=== PATIENT | female | born 1955 | race Caucasian/White ===

== ENCOUNTER → 2017-05-16 | Outpatient (CLI) | payer OTHER ==
--- NOTE | 2017-05-16 14:24 | RADIOLOGY REPORT (SQ) ---
EXAM DESCRIPTION: MRI CERVICAL SPINE WITHOUT COMPLETED DATE/TIME: 05/16/2017 1:44 pm REASON FOR STUDY: RADICULOPATHY,CERVICAL M54.12 RADICULOPATHY, CERVICAL REGION M54.16 RADICULOPATH Y, LUMBAR REGION COMPARISON: 12/03/2012 TECHNIQUE: Sagittal and Axial imaging includes T1, T2, STIR and gradient echo sequences. LIMITATIONS: None. FINDINGS: ALIGNMENT: Normal. VERTEBRAE: Intact. BONE MARROW: Normal. No marrow replacement or reactive changes. DISCS: Desiccation multiple levels. HARDWARE: None in the spine. CORD AND BASE OF BRAIN: Normal in size and signal intensity. SOFT TISSUES: No soft tissue masses. C1-C2: No significant spinal stenosis. C2-C3: No significant spinal stenosis or exit foraminal stenosis. C3-C4: Disc bulge. No significant spinal stenosis or exit foraminal stenosis. C4-C5: Disc bulge. No significant spinal stenosis. Mild neural foraminal narrowing bilaterally. C5-C6: Disc bulge. No significant spinal stenosis. Mild right neural foraminal narrowing. C6-C7: Disc bulge. No significant spinal stenosis or exit foraminal stenosis. C7-T1: No significant spinal stenosis or exit foraminal stenosis. UPPER THORACIC: Incompletely imaged. No significant spinal stenosis or exit foraminal stenosis. OTHER: No other significant finding. IMPRESSION: Mild degenerative change. No evidence of disc herniation. TECHNICAL DOCUMENTATION: JOB ID: [id number] [employer] All Rights Reserved
--- NOTE | 2017-05-16 14:32 | RADIOLOGY REPORT (SQ) ---
EXAM DESCRIPTION: MRI LUMBAR SPINE WITHOUT COMPLETED DATE/TIME: 05/16/2017 1:44 pm REASON FOR STUDY: RADICULOPATHY,LUMBAR M54.12 RADICULOPATHY, CERVICAL REGION M54.16 RADICULOPATHY, LUMBAR REGION COMPARISON: 07/03/2009 TECHNIQUE: Sagittal and Axial imaging includes T1, T2, STIR and gradient echo sequences. Coronal T2/ HASTE imaging. LIMITATIONS: None. FINDINGS: VISUALIZED UPPER ABDOMEN: Limited evaluation. No acute or suspicious findings suggested. SEGMENTATION: No transitional anatomy. The lowest well-developed disc space is labeled L5-S1. ALIGNMENT: Anatomic. VERTEBRAE: Intact. BONE MARROW: Normal. No marrow replacement or reactive changes. DISC SIGNAL: Normal. No significant abnormal signal or loss of height. POSTERIOR ELEMENTS: Intact. HARDWARE: None in the spine. CORD AND CONUS: Normal in size and signal intensity. Conus at the appropriate level. SOFT TISSUES: No aortic aneurysm seen. No bulky retroperitoneal adenopathy or mass. No paraspinal mas s or fluid. L1-L2: No significant spinal stenosis or exit foraminal stenosis. L2-L3: Facet arthropathy. Small synovial cysts left of midline. No significant spinal stenosis or e xit foraminal stenosis. L3-L4: Facet arthropathy. No significant spinal stenosis or exit foraminal stenosis. L4-L5: Facet arthropathy. No significant spinal stenosis or exit foraminal stenosis. L5-S1: Facet arthropathy. No significant spinal stenosis or exit foraminal stenosis. LOWER THORACIC: Incompletely imaged. No stenosis seen. SACRUM: Visualized upper sacrum intact. OTHER: No other significant findings. IMPRESSION: Mild degenerative changes. No evidence of acute disc herniation. TECHNICAL DOCUMENTATION: JOB ID: [id number] [employer]- All Rights Reserved
== END ==
LOC: RAD 12:45
PROVIDERS: ATTEND Neurological Surgery
DX: M54.12 Radiculopathy, cervical region (principal); M54.16 Radiculopathy, lumbar region
CPT/HCPCS: 72141; 72148

== ENCOUNTER → 2017-08-20 | Outpatient (CLI) | payer OTHER ==
[2017-08-20 08:48] LABS: ABSOLUTE LYMPHOCYTES (AUTO) 2.3 10^3/uL (0.5-4.7); ABSOLUTE MONOCYTES (AUTO) 0.5 10^3/uL (0.1-1.4); ABSOLUTE NEUT (AUTO) 2.1 10^3/uL (1.7-8.2); BASOPHILS % (AUTO) 0.8 % (0-2); HEMATOCRIT 36.1 % (36.0-47.0); HEMOGLOBIN 12.1 g/dL (12.0-15.5); HGB HCT DIFFERENCE 0.2; LYMPHOCYTES % (AUTO) 45.8 % (13-45); MEAN CORPUSCULAR HEMOGLOBIN 30.8 pg (27.0-33.4); MEAN CORPUSCULAR HGB CONC 33.5 g/dL (32.0-36.0); MEAN CORPUSCULAR VOLUME 92 fl (80-97); MONOCYTES % (AUTO) 9.6 % (3-13); RED BLOOD COUNT 3.93 10^6/uL (3.72-5.28); RED CELL DISTRIBUTION WIDTH 12.7 % (11.5-14.0); SEGMENTED NEUTROPHILS % (AUTO) 42.8 % (42-78)
[2017-08-20 09:17] LABS: ALANINE AMINOTRANSFERASE 25 U/L (9-52); ALKALINE PHOSPHATASE 66 U/L (38-126); ANION GAP 9 (5-19); ASPARTATE AMINO TRANSFERASE 27 U/L (14-36); BILIRUBIN,DIRECT 0.2 mg/dL (0.0-0.4); BILIRUBIN,TOTAL 0.4 mg/dL (0.2-1.3); BLOOD UREA NITROGEN 11 mg/dL (7-20); CALCIUM 9.4 mg/dL (8.4-10.2); CARBON DIOXIDE 34 mmol/L (22-30); CHLORIDE 101 mmol/L (98-107); CREATININE RESULT 0.55 mg/dL (0.52-1.25); GLUCOSE 88 mg/dL (75-110); POTASSIUM 3.6 mmol/L (3.6-5.0); SODIUM 143.5 mmol/L (137-145)
== END ==
LOC: OD 07:42
PROVIDERS: ATTEND Internal Medicine
DX: I10 Essential (primary) hypertension (principal); E78.5 Hyperlipidemia, unspecified; Z01.818 Encounter for other preprocedural examination
CPT/HCPCS: 36415; 80053; 85025

== ENCOUNTER → 2017-11-19 | Outpatient (CLI) | payer OTHER ==
--- NOTE | 2017-11-19 14:59 | RADIOLOGY REPORT (SQ) ---
EXAM DESCRIPTION: SHOULDER LEFT 2 OR MORE VIEWS COMPLETED DATE/TIME: 11/19/2017 2:18 pm REASON FOR STUDY: L SHOULDER PAIN COMPARISON: None. NUMBER OF VIEWS: Three views. TECHNIQUE: Internal rotation, external rotation, and Y view images acquired of the left shoulder. LIMITATIONS: None. FINDINGS: MINERALIZATION: Osteopenia. BONES: No acute fracture or dislocation. No worrisome bone lesions. JOINTS: No glenohumeral dislocation.No AC joint widening VISUALIZED LUNGS AND RIBS: No pneumothorax. No rib fracture. SOFT TISSUES: No radiopaque foreign body. OTHER: No other significant finding. IMPRESSION: NO RADIOGRAPHIC EVIDENCE OF ACUTE INJURY. TECHNICAL DOCUMENTATION: JOB ID: [id number] [employer]- All Rights Reserved Reading location - IP/workstation name: [email or web address]
== END ==
LOC: RAD 13:57
PROVIDERS: ATTEND Internal Medicine
DX: M25.512 Pain in left shoulder (principal)

== ENCOUNTER → 2017-12-12 | Day surgery (SDC) | payer OTHER ==
--- NOTE | 2017-12-12 14:38 | RADIOLOGY REPORT (SQ) ---
EXAM DESCRIPTION: ARTHRO SHOULDER INJECTION; FLUORO/NEEDLE PLACEMENT COMPLETED DATE/TIME: 12/12/2017 2:08 pm REASON FOR STUDY: SUPERIOR GLENOID LABRUM LESION OF LEFT SHOULDER (S43.432A) S43.432A SUPERIOR CHRISTIAN OID LABRUM LESION OF LEFT SHOULDER, IN COMPARISON: Left shoulder films 11/19/2017 FLUOROSCOPY TIME: 6 seconds 1 digital radiographic image saved to PACS. LIMITATIONS: None. PROCEDURE: Procedure, risks, benefits and alternatives explained to patient who then gave written co nsent. The left shoulder was marked and a time out was called for correct procedure verification. Po sterior entry site marked using fluoroscopic guidance. Shoulder prepped and draped using sterile rena hnique. Local anesthesia achieved using 8 mL of 1% lidocaine injection. 22 gauge spinal needle intr oduced into the joint space under direct fluoroscopic visualization. Non-ionic contrast instilled to confirm intra-articular position. Dilute gadolinium solution then injected. Needle removed and entry site covered with sterile bandage. No immediate complications noted. TECHNIQUE: Digital images acquired during fluoroscopy and stored on PACS. Patient immediately take n to the MR suite for additional imaging. INJECTION LOCATION: Left posterior glenohumeral joint CONTRAST TYPE AND AMOUNT: 1 mL of Isovue-300 injected to confirm intra-articular needle placement fol lowed by 12 mL of dilute Prohance/Saline mixture. IMPRESSION: SUCCESSFUL NEEDLE PLACEMENT AND INJECTION FOR LEFT SHOULDER MR ARTHROGRAM USING POSTERIO R APPROACH. COMMENT: Quality ID 145: Final reports for procedures using fluoroscopy that document radiation exp osure indices, or exposure time and number of fluorographic images (if radiation exposure indices are not available) TECHNICAL DOCUMENTATION: JOB ID: [id number] [employer]- All Rights Reserved Reading location - IP/workstation name: [email or web address]-RR
--- NOTE | 2017-12-12 14:38 | RADIOLOGY REPORT (SQ) ---
EXAM DESCRIPTION: ARTHRO SHOULDER INJECTION; FLUORO/NEEDLE PLACEMENT COMPLETED DATE/TIME: 12/12/2017 2:08 pm REASON FOR STUDY: SUPERIOR GLENOID LABRUM LESION OF LEFT SHOULDER (S43.432A) S43.432A SUPERIOR CHRISTIAN OID LABRUM LESION OF LEFT SHOULDER, IN COMPARISON: Left shoulder films 11/19/2017 FLUOROSCOPY TIME: 6 seconds 1 digital radiographic image saved to PACS. LIMITATIONS: None. PROCEDURE: Procedure, risks, benefits and alternatives explained to patient who then gave written co nsent. The left shoulder was marked and a time out was called for correct procedure verification. Po sterior entry site marked using fluoroscopic guidance. Shoulder prepped and draped using sterile rena hnique. Local anesthesia achieved using 8 mL of 1% lidocaine injection. 22 gauge spinal needle intr oduced into the joint space under direct fluoroscopic visualization. Non-ionic contrast instilled to confirm intra-articular position. Dilute gadolinium solution then injected. Needle removed and entry site covered with sterile bandage. No immediate complications noted. TECHNIQUE: Digital images acquired during fluoroscopy and stored on PACS. Patient immediately take n to the MR suite for additional imaging. INJECTION LOCATION: Left posterior glenohumeral joint CONTRAST TYPE AND AMOUNT: 1 mL of Isovue-300 injected to confirm intra-articular needle placement fol lowed by 12 mL of dilute Prohance/Saline mixture. IMPRESSION: SUCCESSFUL NEEDLE PLACEMENT AND INJECTION FOR LEFT SHOULDER MR ARTHROGRAM USING POSTERIO R APPROACH. COMMENT: Quality ID 145: Final reports for procedures using fluoroscopy that document radiation exp osure indices, or exposure time and number of fluorographic images (if radiation exposure indices are not available) TECHNICAL DOCUMENTATION: JOB ID: [id number] [employer]- All Rights Reserved Reading location - IP/workstation name: [facility]-RR
--- NOTE | 2017-12-12 15:14 | RADIOLOGY REPORT (SQ) ---
EXAM DESCRIPTION: MRI LT UPPER JOINT WITH COMPLETED DATE/TIME: 12/12/2017 2:46 pm REASON FOR STUDY: SUPERIOR GLENOID LABRUM LESION OF LEFT SHOULDER (S43.432A) S43.432A SUPERIOR CHRISTIAN OID LABRUM LESION OF LEFT SHOULDER, IN COMPARISON: Left shoulder three views 11/19/2017 TECHNIQUE: Left shoulder images acquired and stored on PACS. Oblique coronal, oblique sagittal, and axial imaging to include fat sensitive sequences as T1, water sensitive sequences as FST2/STIR, and c ontrast sensitive sequences as FST1. LIMITATIONS: None. FINDINGS: JOINT DISTENTION: Adequate intra-articular contrast. No leakage of contrast into the suba cromial/ subdeltoid bursa through a rotator cuff defect. There is a small amount of fluid without ga dolinium in the subacromial/subdeltoid bursa from bursitis. BONE MARROW AND CORTEX: No marrow signal abnormalities worrisome for occult fracture. There is subco rtical cyst formation in the ventral aspect left humeral head medial to the bicipital groove, and min imal subcortical edema in the anterior edge of the greater tuberosity from impingement AC JOINT: Type II acromion. Mild acromioclavicular joint bony spurring. Mild undersurface acromion b tonja spurring GLENOHUMERAL JOINT: Minimal chondromalacia. No malalignment. ROTATOR CUFF: Intact without significant tendinopathy, partial or full-thickness tears. No peritendin itis. LABRUM AND BICEPS LABRAL COMPLEX: Normal signal in the rotator interval without tear of the superior glenohumeral ligament. Intra-articular long head biceps tendon high signal from tendinopathy. There is a small anterior superior labral tear at its attachment, best shown on axial images 5-7 and sagit erica image 12. INFERIOR LABRAL COMPLEX: Bony glenoid and labrum intact. IGHL intact without thickening or tear. No p aralabral cysts. ADJACENT SOFT TISSUES: No masses or nodes. OTHER: No other significant finding. IMPRESSION: Intra-articular long head biceps tendinopathy with small superior labral tear TECHNICAL DOCUMENTATION: JOB ID: [id number] [employer]- All Rights Reserved Reading location - IP/workstation name: [facility]
== END ==
LOC: RAD 13:19
PROVIDERS: ATTEND Internal Medicine
PROC: BP09ZZZ Plain Radiography of Left Shoulder (ICD-10-PCS; principal; 2017-12-12)
DX: S43.432A Superior glenoid labrum lesion of left shoulder, initial encounter (principal); X58.XXXA Exposure to other specified factors, initial encounter
CPT/HCPCS: 23350; 77002

== ENCOUNTER → 2018-04-01 | Outpatient (CLI) | payer OTHER ==
[2018-04-01 10:57] LABS: ABSOLUTE EOSINOPHILS # (AUTO) 0.1 10^3/uL (0.0-0.6); ABSOLUTE MONOCYTES (AUTO) 0.5 10^3/uL (0.1-1.4); ABSOLUTE NEUT (AUTO) 2.7 10^3/uL (1.7-8.2); BASOPHILS % (AUTO) 0.9 % (0-2); EOSINOPHILS % (AUTO) 1.4 % (0-6); HEMATOCRIT 35.9 % (36.0-47.0); HEMOGLOBIN 12.1 g/dL (12.0-15.5); LYMPHOCYTES % (AUTO) 38.4 % (13-45); MEAN CORPUSCULAR HEMOGLOBIN 30.8 pg (27.0-33.4); MEAN CORPUSCULAR HGB CONC 33.7 g/dL (32.0-36.0); MEAN CORPUSCULAR VOLUME 91 fl (80-97); MONOCYTES % (AUTO) 8.9 % (3-13); PLATELET COUNT 230 10^3/uL (150-450); RED BLOOD COUNT 3.93 10^6/uL (3.72-5.28); RED CELL DISTRIBUTION WIDTH 12.8 % (11.5-14.0); SEGMENTED NEUTROPHILS % (AUTO) 50.4 % (42-78); TOTAL CELLS COUNTED % (AUTO) 100 %; WHITE BLOOD COUNT 5.3 10^3/uL (4.0-10.5)
[2018-04-01 11:12] LABS: ALANINE AMINOTRANSFERASE 23 U/L (9-52); ALKALINE PHOSPHATASE 68 U/L (38-126); ANION GAP 10 (5-19); ASPARTATE AMINO TRANSFERASE 23 U/L (14-36); BILIRUBIN,DIRECT 0.3 mg/dL (0.0-0.4); BILIRUBIN,TOTAL 0.5 mg/dL (0.2-1.3); BLOOD UREA NITROGEN 11 mg/dL (7-20); CALCIUM 9.3 mg/dL (8.4-10.2); CARBON DIOXIDE 29 mmol/L (22-30); CHLORIDE 105 mmol/L (98-107); GLUCOSE 86 mg/dL (75-110); POTASSIUM 4.2 mmol/L (3.6-5.0); SODIUM 143.7 mmol/L (137-145)
[2018-04-01 11:18] LABS: AMORPHOUS SEDIMENT,URINE TRACE /HPF; APPEARANCE,URINE CLOUDY; BILIRUBIN,URINE NEGATIVE (NEGATIVE); GLUCOSE, URINE NEGATIVE (NEGATIVE); KETONES,URINE NEGATIVE (NEGATIVE); LEUKOCYTE ESTERASE,URINE TRACE (NEGATIVE); NITRITE,URINE NEGATIVE (NEGATIVE); PROTEIN,URINE NEGATIVE (NEGATIVE); URINE SPECIFIC GRAVITY 1.015; UROBILINOGEN,URINE NEGATIVE mg/dL (<2.0)
[2018-04-01 11:20] LABS: COLOR,URINE YELLOW
== END ==
LOC: OD 10:01
PROVIDERS: ATTEND Internal Medicine
DX: K57.92 Diverticulitis of intestine, part unspecified, without perforation or abscess without bleeding (principal); N39.0 Urinary tract infection, site not specified
CPT/HCPCS: 36415; 80053; 81001; 85025; 87086

== ENCOUNTER → 2018-04-02 | Outpatient (CLI) | payer OTHER ==
--- NOTE | 2018-04-02 10:09 | RADIOLOGY REPORT (SQ) ---
EXAM DESCRIPTION: CT ABD/PELVIS WITH IV ORAL COMPLETED DATE/TIME: 04/02/2018 9:13 am REASON FOR STUDY: DIVERTICULOSIS OF INTESTINE, PART UNSPECIFIED, W/O PERFORATION K57.90 DVRTCLOS OF INTEST, PART UNSP, W/O PERF OR ABSCESS W/ N20.0 CALCULUS OF KIDNEY COMPARISON: 02/22/2016 TECHNIQUE: CT scan of the abdomen and pelvis performed using helical scanning technique with dynamic intravenous contrast injection. No oral contrast. Images reviewed with lung, soft tissue, and bone windows. Reconstructed coronal and sagittal MPR images reviewed. Delayed images for evaluation of the urinary system also acquired. All images stored on PACS. All CT scanners at this facility use dose modulation, iterative reconstruction, and/or weight based d osing when appropriate to reduce radiation dose to as low as reasonably achievable (ALARA). [facility]: Dose Right [facility]: CareDose [facility]: Dose Right [facility]: Teradose 4D [facility]: Thanx CONTRAST TYPE AND DOSE: contrast/concentration: Isovue 370.00 mg/ml; Total Contrast Delivered: 88.0 ml; Total Saline Delivered: 69.0 ml RENAL FUNCTION: BUN 11, creatinine 0.48 RADIATION DOSE: CT Rad equipment meets quality standard of care and radiation dose reduction techniq ues were employed. CTDIvol: 9.5 - 11.0 mGy. DLP: 1106 mGy-cm.. LIMITATIONS: None. FINDINGS: LOWER CHEST: There is persistent linear opacity in the left base most likely scar. This i s unchanged from 2016. LIVER: Small hepatic cysts are noted and stable in appearance. SPLEEN: Normal size. No focal lesions. PANCREAS: No masses. No significant calcifications. No adjacent inflammation or peripancreatic fluid collections. Pancreatic duct not dilated. GALLBLADDER: Surgically absent. ADRENAL GLANDS: No significant masses or asymmetry. RIGHT KIDNEY AND URETER: No solid masses. No significant calcifications. No hydronephrosis or hyd roureter. LEFT KIDNEY AND URETER: No solid masses. No significant calcifications. No hydronephrosis or hydr oureter. AORTA AND VESSELS: No aneurysm. No dissection. Renal arteries, SMA, celiac without stenosis. RETROPERITONEUM: No retroperitoneal adenopathy, hemorrhage or masses. BOWEL AND PERITONEAL CAVITY: No masses or inflammatory changes. No free fluid or peritoneal masses. APPENDIX: Normal. PELVIS: No mass. No free fluid. Normal bladder. ABDOMINAL WALL: No masses. No hernias. BONES: No significant or acute findings. OTHER: No other significant finding. IMPRESSION: No acute findings in the abdomen or pelvis. TECHNICAL DOCUMENTATION: JOB ID: [id number] Quality ID # [id number]: Final reports with documentation of one or more dose reduction techniques (e.g., Au tomated exposure control, adjustment of the mA and/or kV according to patient size, use of iterative reconstruction technique) 2010 [employer]- All Rights Reserved Reading location - IP/workstation name: [email or web address]
== END ==
LOC: RAD 08:21
PROVIDERS: ATTEND Internal Medicine
DX: K57.90 Diverticulosis of intestine, part unspecified, without perforation or abscess without bleeding (principal); N20.0 Calculus of kidney
CPT/HCPCS: 74177

== ENCOUNTER → 2018-09-10 | Outpatient (CLI) | payer OTHER ==
--- NOTE | 2018-09-10 10:39 | RADIOLOGY REPORT (SQ) ---
EXAM DESCRIPTION: T SPINE AP/LAT COMPLETED DATE/TIME: 09/10/2018 10:12 am REASON FOR STUDY: PAIN IN THORACIC SPINE M54.6 PAIN IN THORACIC SPINE COMPARISON: 07/11/2016 NUMBER OF VIEWS: Two views. TECHNIQUE: AP and lateral radiographic images acquired of the thoracic spine. LIMITATIONS: None. FINDINGS: MINERALIZATION: Normal. ALIGNMENT: Normal. No scoliosis. VERTEBRAE: No fracture or bone lesion. Maintained height, normal segmentation. DISCS: Multilevel disc space narrowing with osteophytes. HARDWARE: None in the spine. MEDIASTINUM AND SOFT TISSUES: Normal heart size and aortic contour. No soft tissue abnormality. VISUALIZED LUNG VALDERRAMA: Clear. OTHER: No other significant finding. IMPRESSION: SPONDYLOSIS WITHOUT BONE LESION OR FRACTURE. TECHNICAL DOCUMENTATION: JOB ID: [id number] [employer]- All Rights Reserved Reading location - IP/workstation name: [facility]-RR
== END ==
LOC: RAD 09:58
PROVIDERS: ATTEND Pain Medicine Interventional Pain Medicine
DX: M54.6 Pain in thoracic spine (principal); M47.894 Other spondylosis, thoracic region
CPT/HCPCS: 72070